=== PATIENT | female | born 1990 | race African-American/Black ===

== ENCOUNTER 2018-02-01 16:11 | Emergency (ER) | payer MEDICAID, OTHER ==
[~2018-02-01] VITALS: Ht 165.1 cm; Wt 122.5 kg
[2018-02-01 16:20] VITALS: BP 152/89
--- NOTE | 2018-02-01 16:40 | NUR ---
PT AMBULATED TO ER BED 10
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
[2018-02-01] MEDS ORDERED: KETOROLAC 60 MG/2 ML VIAL IM ONE (17:35)
--- NOTE | 2018-02-01 18:10 | NUR ---
PT TO CT VIA W/C ACCOMPANIED BY EQUIP MAINT ENG
--- NOTE | 2018-02-01 19:02 | NUR ---
Written and verbal after care instructions given and explained er md Duffy. All questions addressed prior to discharge er md Duffy. Patient advised to follow up with PMD er md Duffy. Rx of Naprosyn given er md Duffy. Patient educated on indication of medication including possible reaction and side effects er md Duffy. Opportunity to ask questions provided and answered er md Duffy.
== END 2018-02-01 19:02 | disposition home or self-care (01) ==
LOC: MED 16:11
DX: S09.90XA Unspecified injury of head, initial encounter (principal); J45.909 Unspecified asthma, uncomplicated; W22.8XXA Striking against or struck by other objects, initial encounter; Y93.89 Activity, other specified; Y92.89 Other specified places as the place of occurrence of the external cause; Y99.8 Other external cause status
CPT/HCPCS: 70450; 81025; 96372; 99284; J1885

== ENCOUNTER 2018-08-07 12:19 | Emergency (ER) | payer SELFPAY ==
[~2018-08-07] VITALS: Ht 165.1 cm; Wt 118.6 kg
[2018-08-07 12:45] VITALS: BP 145/87
== END 2018-08-07 15:35 | disposition home or self-care (01) ==
LOC: MED 12:19
DX: N39.0 Urinary tract infection, site not specified (principal); R19.7 Diarrhea, unspecified; R11.0 Nausea; J45.909 Unspecified asthma, uncomplicated; Z90.49 Acquired absence of other specified parts of digestive tract
CPT/HCPCS: 81002; 81025; 99283

== ENCOUNTER 2019-12-09 11:02 | Emergency (ER) | payer MEDICAID ==
[~2019-12-09] VITALS: Ht 165.1 cm; Wt 119.3 kg
[2019-12-09 11:16] VITALS: BP 124/94
--- NOTE | 2019-12-09 11:22 | NUR ---
AMBULATED TO BED 7
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
--- NOTE | 2019-12-09 13:20 | NUR ---
DR. PENDLETON AT BEDSIDE.
--- NOTE | 2019-12-09 13:25 | NUR ---
JV ALCANTAR AT BEDSIDE FOR SHOULDER SLING.
[2019-12-09 13:32] VITALS: BP 138/79
== END 2019-12-09 13:32 | disposition home or self-care (01) ==
LOC: MED 11:02
DX: S16.1XXA Strain of muscle, fascia and tendon at neck level, initial encounter (principal); S46.812A Strain of other muscles, fascia and tendons at shoulder and upper arm level, left arm, initial encounter; S39.012A Strain of muscle, fascia and tendon of lower back, initial encounter; J45.909 Unspecified asthma, uncomplicated; Z90.49 Acquired absence of other specified parts of digestive tract; Z98.890 Other specified postprocedural states; V49.40XA Driver injured in collision with unspecified motor vehicles in traffic accident, initial encounter; Y93.89 Activity, other specified; Y92.89 Other specified places as the place of occurrence of the external cause; Y99.8 Other external cause status
CPT/HCPCS: 71045; 72040; 73030; 99284

== ENCOUNTER 2022-03-18 14:47 | Emergency (ER) | payer MEDICAID ==
[~2022-03-18] VITALS: Ht 165.1 cm; Wt 122.5 kg
[2022-03-18 15:13] VITALS: BP 128/77
[2022-03-18] MEDS ORDERED: IBUPROFEN 600 MG TAB PO ONE (15:55)
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
[2022-03-18] MEDS ORDERED: ACETAMINOPHEN EXTRA STRENGTH 500 MG TAB PO ONE (16:30)
--- NOTE | 2022-03-18 17:13 | NUR ---
xr at bedside
--- NOTE | 2022-03-18 17:15 | NUR ---
Note kavita in EDM - 03/18/22 at 1718 by [email or web address] Patient discharged with v/s stable. Written and verbal after care instructions given and explained. Patient alert, oriented and verbalized understanding of instructions. Wheel Chair Assisted with to skilled nursing. All questions addressed prior to discharge. ID band removed. Patient advised to follow up with PMD. Rx of bacitracin given. Patient educated on indication of medication including possible reaction and side effects. Opportunity to ask questions provided and answered. pt assisted to wheelchair for [employer] transport
[2022-03-18] MEDS ORDERED: IBUP-2213 PO (17:57)
--- NOTE | 2022-03-18 18:01 | NUR ---
PATIENT PROVIDED WITH CRUTCHES
--- NOTE | 2022-03-18 18:01 | NUR ---
CHILDREN AT BEDSIDE
--- NOTE | 2022-03-18 18:08 | NUR ---
PT R FOOT NATASHA TAPE PLACED ON 4/5 DIGIT. PT ALSO INSTRUCTED AND DEMONSTRATED ON HOW TO USE CRUTCHES. PT RETURNED PROPER DEMONSTRATION OF CRUTCHES. PT HAD NO FURTHER QUESTIONS. + CMS AFTER APPLICATION OF NATASHA TAPE
[2022-03-18 18:09] VITALS: BP 128/78
== END 2022-03-18 18:09 | disposition home or self-care (01) ==
LOC: MED 14:47
DX: S93.504A Unspecified sprain of right lesser toe(s), initial encounter (principal); J45.909 Unspecified asthma, uncomplicated; Z90.49 Acquired absence of other specified parts of digestive tract; Z98.890 Other specified postprocedural states; X58.XXXA Exposure to other specified factors, initial encounter; Y93.89 Activity, other specified; Y92.89 Other specified places as the place of occurrence of the external cause; Y99.8 Other external cause status
CPT/HCPCS: 73660; 99283; Q0092

== ENCOUNTER 2023-09-30 20:24 | Emergency (ER) | payer MEDICAID ==
[~2023-09-30] VITALS: Ht 165.1 cm; Wt 125.6 kg
[~2023-09-30 20:24] MED LIST: IBUP-2213 PO
[2023-09-30 21:07] VITALS: BP 125/69; PULSE 58; RESP 16; TEMP 97.7; O2SAT 100
[2023-09-30] MEDS ORDERED: SILVER SULFADIAZINE 1% 50 GM JAR TP ONE (22:45)
[2023-09-30] MEDS ORDERED: KETOROLAC 60 MG/2 ML VIAL IM ONE (23:15)
[2023-09-30] MEDS ORDERED: TRAM50TA3 PO (23:40)
== END 2023-09-30 23:48 | disposition home or self-care (01) ==
LOC: MED 20:24
DX: T23.152A Burn of first degree of left palm, initial encounter (principal); T31.0 Burns involving less than 10% of body surface; X08.8XXA Exposure to other specified smoke, fire and flames, initial encounter; Y93.89 Activity, other specified; Y92.89 Other specified places as the place of occurrence of the external cause; Y99.8 Other external cause status
CPT/HCPCS: 16000; 96372; 99283; J1885